=== PATIENT | male | born 1995 | race Caucasian/White ===

== ENCOUNTER 2017-12-25 06:47 | Day surgery (SDC) | payer SELFPAY ==
[~2017-12-25] VITALS: Ht 188 cm; Wt 88.5 kg
[~2017-12-25 06:47] MED LIST: AMOXICILLIN500 MG OR; CEPHALEXIN500 MG OR; DEPAKOTE500 MG OR; FLONASE NASAL50 MCG; KEPPRA500 MG OR; MULTI FOR HIM PO; MULTI VIT PO; NAPROSYN500 MG PO; NO HOME MEDS; NO MEDS; SILVADENE1 % EX; ULTRAM50 M1 PO; VIT C250 MG PO
[2017-12-25] MEDS ORDERED: MOTRIN800 MG PO (10:38)
[2017-12-25 10:55] VITALS: BP 124/81
== END 2017-12-25 11:03 | disposition home or self-care (01) | DRG 585 ==
LOC: ORM 06:47
PROVIDERS: ATTEND Surgery
PROC: 0HBU0ZX Excision of Left Breast, Open Approach, Diagnostic (ICD-10-PCS; principal; 2017-12-25)
DX: N62 Hypertrophy of breast (principal)